=== PATIENT | male | born 1985 | race Caucasian/White ===

== ENCOUNTER 2020-06-23 16:56 | Emergency (ER) | payer SELFPAY ==
[~2020-06-23] VITALS: Ht 172.7 cm; Wt 93.9 kg
[2020-06-23] MEDS ORDERED: InsuLIN REG 1unit/0.01ml Soln (100units/ml) ONE (19:06)
[2020-06-23] MEDS ORDERED: FLUORESCEIN SOD 1 MG TEST STRIP LEFTEYE ONE (20:45)
[2020-06-23] MEDS ORDERED: TETRACAINE HCL 0.5% OPTH(EYE) SOLN 4ML LEFTEYE ONE (21:00)
[2020-06-23 22:10] VITALS: BP 147/88
== END 2020-06-23 22:28 | disposition home or self-care (01) ==
LOC: ER 16:56
DX: S05.02XA Injury of conjunctiva and corneal abrasion without foreign body, left eye, initial encounter (principal); X58.XXXA Exposure to other specified factors, initial encounter; Y93.89 Activity, other specified; Y92.89 Other specified places as the place of occurrence of the external cause; Y99.8 Other external cause status
CPT/HCPCS: 99283; J1815